=== PATIENT | female | born 1975 | race American Indian/Alaskan Native ===

== ENCOUNTER 2019-04-26 10:56 | Emergency (ER) | payer OTHER ==
--- NOTE | 2019-04-26 11:37 | Emergency Department Report ---
ED Chest Pain HPI - General Chief Complaint: Chest Pain Stated Complaint: CHEST PAIN Time Seen by Provider: 04/26/19 11:35 Source: patient Mode of arrival: Ambulatory Limitations: No Limitations - History of Present Illness Initial Comments: 43 YO COMES TO ER WITH L SIDED CP WHILE AT WORK TODAY. IT IS WORSE WITH MOVEMENT AND IMPROVED WITH REST. SHE WORKS IN A H[employer] AND DURING THIS TIME SHE WAS HOT AND SHE GOT DIZZY. NO DIAPHORESIS. THE PAIN WENT AWAY WHEN SHE SAT DOWN AND RESTED IN A COOL ROOM. Denies fever/chills/sob/orthopnea/sleep apnea. No travel/leg pain/SOB or use of hormones/BCP On exam on arrival to ER the pt is pain free. PT HAD CARDIAC WORK UP LAST SUMMER IN [place]- IT WAS NORMAL PT BELIEVES THAT THE PAIN IS MUSCLE; HER WORK MADE HER COME HERE to be seen. PMH DYSLIPIDEMIA- DIET CONTROLLED, never needed meds [facility] PSH TUBAL HOME MEDS- NONE LMP 2 W AGO DAD UBALDO CA MOM ALIVE AND WELL NO FAM HX CAD Complaint: chest pain -: Sudden Onset: other (WHILE AT WORK) Pain Location: left chest Pain Radiation: none Severity: mild Quality: aching Consistency: intermittent, now resolved Improves With: rest Worsens With: exertion re: denies: nausea, vomting, diaphoresis, dyspnea, sense of impending doom Other Symptoms: denies: cough, fever, syncope, rash, acid taste in mouth, leg swelling, palpitations, burping Treatments Prior to Arrival: none - Related Data On Oral Contraceptives: No Allergies Allergy/AdvReac Type Severity Reaction Status Date / Time No Known Allergies Allergy Unverified 04/26/19 11:29 Heart Score - HEART Score History: Slightly suspicious EKG: Normal Age: < 45 Risk factors: 1-2 risk factors Troponin: < normal limit HEART Score: 1 - Critical Actions Critical Actions: 0-3 pts:0.9-1.7%risk of adverse cardiac event.Candidate for discharge ED Review of Systems ROS: Stated complaint: CHEST PAIN Other details as noted in HPI Comment: All other systems reviewed and negative ED Past Medical Hx - Past Medical History Previous Medical History?: Yes Additional medical history: obese/hpld - Surgical History Past Surgical History?: No - Family History Family history: other (dad dec ca; mom a/w; no fam hx cad) - Social History Smoking Status: Never Smoker Substance Use Type: None ED Physical Exam - General Limitations: No Limitations General appearance: alert - Head Head exam: Present: normocephalic - Eye Eye exam: Present: normal appearance, PERRL - ENT ENT exam: Present: mucous membranes moist - Neck Neck exam: Present: normal inspection - Respiratory Respiratory exam: Present: normal lung sounds bilaterally - Cardiovascular Cardiovascular Exam: Present: regular rate, normal rhythm, bradycardia, normal heart sounds, other (no edema; pt states he legs on swell when on her feet all day at work; at night they go down. ). Absent: tachycardia, irregular rhythm, systolic murmur, diastolic murmur, rubs, gallop, clicks, JVD, S3, S4 - GI/Abdominal GI/Abdominal exam: Present: soft - Rectal Rectal exam: Present: deferred - Extremities Exam Extremities exam: Present: normal inspection - Back Exam Back exam: Present: normal inspection, full ROM - Neurological Exam Neurological exam: Present: alert, oriented X3, CN II-XII intact - Psychiatric Psychiatric exam: Present: normal affect, normal mood - Skin Skin exam: Present: warm, dry ED Course Vital Signs 04/26/19 04/26/19 04/26/19 11:18 11:23 11:30 Temperature 98.1 F Pulse Rate 55 L 52 L Respiratory 18 19 Rate Blood Pressure 127/63 127/63 127/63 Blood Pressure [Right] O2 Sat by Pulse 100 100 100 Oximetry 04/26/19 04/26/19 04/26/19 11:46 12:12 12:16 Temperature Pulse Rate 55 L 60 Respiratory 16 16 Rate Blood Pressure 107/71 109/74 Blood Pressure [Right] O2 Sat by Pulse 100 100 100 Oximetry 04/26/19 04/26/19 04/26/19 12:22 12:46 13:00 Temperature Pulse Rate 57 L 58 L Respiratory 18 10 L 19 Rate Blood Pressure 97/72 108/59 Blood Pressure [Right] O2 Sat by Pulse 100 99 Oximetry 04/26/19 04/26/19 13:16 14:24 Temperature Pulse Rate 59 L 87 Respiratory 10 L 18 Rate Blood Pressure 115/76 Blood Pressure 121/69 [Right] O2 Sat by Pulse 100 100 Oximetry AGUSTO score - Agusto Score Age > 65: (0) No Aspirin use within the Past 7 Days: (0) No 3 or more CAD Risk Factors: (0) No 2 or more Angina events in past 24 hrs: (0) No Known CAD with more than 50% Stenosis: (0) No Elevated Cardiac Markers: (0) No ST Deviation Greater than 0.5mm: (0) No AGUSTO Score: 0 ED Medical Decision Making - Lab Data Result diagrams: 04/26/19 12:13 04/26/19 12:13 - EKG Data EKG shows normal: sinus rhythm Rate: normal - EKG Data When compared to previous EKG there are: no significant change Interpretation: no acute changes - Radiology Data Radiology results: report reviewed, image reviewed - Medical Decision Making Labs 04/26/19 04/26/19 12:13 12:13 WBC 5.9 RBC 5.19 H Hgb 11.7 Hct 36.9 MCV 71 L MCH 23 L MCHC 32 RDW 16.0 H Plt Count 240 Lymph % (Auto) 30.2 Hale % (Auto) 6.7 Eos % (Auto) 1.9 Baso % (Auto) 0.7 Lymph # 1.8 Hale # 0.4 Eos # 0.1 Baso # 0.0 Seg Neutrophils % 60.5 Seg Neutrophils # 3.6 Sodium 140 Potassium 4.0 Chloride 105.3 Carbon Dioxide 24 Anion Gap 15 BUN 13 Creatinine 1.1 Estimated GFR 54 BUN/Creatinine Ratio 12 Glucose 85 Calcium 8.9 Total Bilirubin 0.20 AST 12 ALT 9 Alkaline Phosphatase 64 Troponin T < 0.010 Total Protein 7.2 Albumin 3.9 Albumin/Globulin Ratio 1.2 Vital Signs 04/26/19 04/26/19 04/26/19 11:18 11:23 11:30 Temperature 98.1 F Pulse Rate 55 L 52 L Respiratory 18 19 Rate Blood Pressure 127/63 127/63 127/63 O2 Sat by Pulse 100 100 100 Oximetry 04/26/19 04/26/19 04/26/19 11:46 12:12 12:16 Temperature Pulse Rate 55 L 60 Respiratory 16 16 Rate Blood Pressure 107/71 109/74 O2 Sat by Pulse 100 100 100 Oximetry 04/26/19 04/26/19 04/26/19 12:22 12:46 13:00 Temperature Pulse Rate 57 L 58 L Respiratory 18 10 L 19 Rate Blood Pressure 97/72 108/59 O2 Sat by Pulse 100 99 Oximetry 04/26/19 13:16 Temperature Pulse Rate 59 L Respiratory 10 L Rate Blood Pressure 115/76 O2 Sat by Pulse 100 Oximetry 12lead no acute change pain consistent with musculoskeletal; can reproduce with movement trop neg cardiac work up 1 year ago normal chest xray nap discussed with Dr Nasir Dumont home with referral to [facility] for [facility] risk cardiac follow up. Educated pt and family on discharge plan of care. They verbalize understanding. - Differential Diagnosis ro acs/ chestwall pain/ costrochondritis/ musculoskeletal pain Critical care attestation.: If time is entered above; I have spent that time in minutes in the direct care of this critically ill patient, excluding procedure time. ED Disposition Clinical Impression: Chest wall pain Disposition: TO HOME OR SELFCARE Is pt being admited?: No Does the pt Need Aspirin: No Condition: Stable Instructions: Chest Pain (ED) Additional Instructions: STAY WELL HYDRATED FOLLOW UP WITH PCP AND CARDIOLOGY REFERRALS BELOW DIET AND ACTIVITY TOLERATED Referrals: STANFORD ARTEAGA MD [Staff Physician] - 3-5 Days EVAN DUCKWORTH MD [Staff Physician] - 3-5 Days Forms: Accompanied Note, Work/School Release Form(ED) Time of Disposition: 13:34
[2019-04-26 12:48] LABS: Basophils % (Auto) 0.7 % (0.0-1.8); Eosinophils # (Auto) 0.1 K/mm3 (0.0-0.4); Eosinophils % (Auto) 1.9 % (0.0-4.3); Hematocrit 36.9 % (30.3-42.9); Hemoglobin 11.7 gm/dl (10.1-14.3); Lymphocytes # (Auto) 1.8 K/mm3 (1.2-5.4); Lymphocytes % (Auto) 30.2 % (13.4-35.0); Mean Corpuscular HGB Conc 32 % (30-34); Mean Corpuscular Volume 71 fl (79-97); Monocytes # (Auto) 0.4 K/mm3 (0.0-0.8); Monocytes % (Auto) 6.7 % (0.0-7.3); Platelet Count 240 K/mm3 (140-440); Red Blood Count 5.19 M/mm3 (3.65-5.03)
[2019-04-26 12:58] LABS: Alanine Aminotransferase 9 units/L (7-56); Albumin 3.9 g/dL (3.9-5); BUN/Creatinine Ratio 12; Blood Urea Nitrogen 13 mg/dL (7-17); Calcium 8.9 mg/dL (8.4-10.2); Hemolysis Index 1
--- NOTE | 2019-04-26 14:04 | XRay Report ---
CHEST 1 VIEW INDICATION: Chest Pain. COMPARISON: None. FINDINGS: Support devices: None. Heart: Within normal limits. Pulmonary vasculature: Normal. Lungs/Pleura: No acute air space or interstitial disease. Additional findings: None. IMPRESSION: No acute cardiopulmonary process. Signer Name: Josué Peres MD Signed: 04/26/2019 1:59 PM Workstation Name: [id number]
[2019-04-26 14:27] VITALS: BP 121/69
== END 2019-04-26 14:41 | disposition home or self-care (01) ==
LOC: ED 10:56
DX: R07.89 Other chest pain (principal)
CPT/HCPCS: 36415; 71045; 80053; 84484; 85025; 93005; 93010